=== PATIENT | male | born 1955 | race Caucasian/White ===

== ENCOUNTER 2023-05-30 08:04 | Observation (INO) ==
--- NOTE | 2023-05-15 10:44 | PAT Medication Instructions ---
Medication Instructions Date of Service May 15, 2023 Home Medications Super Beets 1 dose PO atorvastatin 10 mg tablet 10 mg PO HS cholecalciferol (vitamin D3) 25 mcg (1,000 unit) tablet (Vitamin D3) 25 mcg PO QAM collagen,hydrolysate 500 mg-biotin 800 mcg-ascorbic acid 50 mg capsule (Collagen 1500 Plus C) 1 cap PO DAILY turmeric 400 mg capsule 1,000 mg PO DAILY zinc 50 mg tablet 50 mg PO QAM STOP taking 2 weeks before surgery (or as soon as possible if surgery is within 2 weeks) Super Beets 1 dose PO collagen,hydrolysate 500 mg-biotin 800 mcg-ascorbic acid 50 mg capsule (Collagen 1500 Plus C) 1 cap PO DAILY turmeric 400 mg capsule 1,000 mg PO DAILY DO NOT take the morning of surgery cholecalciferol (vitamin D3) 25 mcg (1,000 unit) tablet (Vitamin D3) 25 mcg PO QAM zinc 50 mg tablet 50 mg PO QAM Take evening before surgery atorvastatin 10 mg tablet 10 mg PO HS Other Notes NOTHING TO EAT OR DRINK AFTER MIDNIGHT. If you have any questions please call us at [phone] or [phone] or [phone] or [phone]
--- NOTE | 2023-05-18 10:16 | Anesthesiology Consultation ---
Date of Service May 18, 2023 Assessment & Plan (1) Encounter for pre-operative examination: - Infectious disease screening: Per assessment on 05/18/23: No known infectious disease contacts or current infectious disease symptoms. No noted Covid positive test result in past 90 days. - Outpatient joint assessment: Pt currently scheduled for inpatient pathway. If surgeon requests review for outpatient joint pathway, patient is not recommended candidate for outpatient joint program from anesthesia standpoint. - Cardiology visit (05/04/23): " He reports nonprogressive functional class II s hortness of breath and fatigue. He underwent diagnostic cardiac catheterization which showed normal coronaries.. Continue current meds.. Diet and exercise were discussed with patient.. Low-salt diet.. Check blood pressure on regular basis.. Continue atorvastatin for hyperlipidemia.. Discussed cardiac catheterization results, echocardiogram results and Holter monitor with patient.. No change in medications required." - Cardiology note (05/04/23): "Low to moderate risk" Chart Review Chart Review: Acceptable Risk for Surgery and Patient seen in Pre Admission Testing Teaching & Discussion Pre-Anesthesia Teaching/Discussion Notes: Instructed NPO after midnight before surgery,except medications with 15 cc of water. Medication instructions provided according to the PAT guidelines. History Surgery Operation Date: 05/30/23 09:40 Proposed Procedures p Right Total Knee Arthroplasty - Daniel Fontenot MD Height/Weight Height: 6 ft 1 in Weight: 83.9 kg Allergies Allergy/AdvReac Type Severity Reaction Status Date / Time Penicillins Allergy Unknown Unknown Verified 05/11/23 11:18 Medications Home Medications Medication Instructions Recorded Confirmed Last Taken Super Beets 1 dose PO DIRECTED 05/11/23 05/11/23 Unknown atorvastatin 10 mg tablet 10 mg PO HS 05/11/23 05/11/23 Unknown cholecalciferol (vitamin D3) 25 25 mcg PO QAM 05/11/23 05/11/23 Unknown mcg (1,000 unit) tablet (Vitamin D3) collagen,hydrolysate 500 mg-biotin 1 cap PO DAILY 05/11/23 05/11/23 Unknown 800 mcg-ascorbic acid 50 mg capsule (Collagen 1500 Plus C) turmeric 400 mg capsule 1,000 mg PO DAILY 05/11/23 05/11/23 Unknown zinc 50 mg tablet 50 mg PO QAM 05/11/23 05/11/23 Unknown Past Medical History Medical History Arthritis DDD (degenerative disc disease), lumbar Hiatal hernia History of colitis Remote hx History of COVID-19 09/2022 Hx of deep venous thrombosis RLE DVT, Remote hx (post-op back surgery) Hyperlipidemia IBS (irritable bowel syndrome) Migraine Hx Pre-diabetes RBBB Sleep apnea "No longer has" after weight loss per patient Patient states he was advised doesn't need a device currently based on recent home testing results Spinal stenosis Exercise / Class Metabolic Activity II 4-5 Yardwork/Stairs/Walk up hill Past Surgical History Surgical History History of cardiac cath 04/26/23 (Karishma) > no stents, "mild trivial CAD" History of colonoscopy History of deviated nasal septum repaired History of esophagogastroduodenoscopy (EGD) History of lumbar surgery History of tonsillectomy History of urologic surgery Urolift Hx of inguinal hernia repair Hx of umbilical hernia repair Hx of vasectomy [place] teeth extracted Past Anesthesia History No Hx of Anesthesia Complications and No Family Hx of Anesthesia Complications History of PONV No Hx of PONV and No Hx of Motion Sickness Social History Smoking Status: Former smoker Do You Dip or Chew Tobacco: No Smoking End Date: Very mild use, age 20s Hx Alcohol Use: Yes Alcohol type: beer alcohol intake frequency: a few times a week Hx Substance Use: No substance use type: does not use Review of Systems Chronic sinus drainage. Patient denies chest pain, shortness of breath, dyspnea on exertion, fever, chills, cough, wheezing, palpitations. Physical Exam Vital Signs VITALS BP 134/81 P 61 TEMP 98.2 SP02 98%RA RESP 18 PHYSICAL Mildly decreased cervical extension range of motion. Full TMJ range of motion. TMD 3 finger breaths Mallampati Score 1 Dentition: intact, + caps Lungs: clear throughout to auscultation Cardiac: regular rate and rhythm, no murmurs noted Spine: normal Carotid arteries: negative bruit Extremities: no LE edema Lab Results Anesthesia Preop Results Results Anesthesia Widget: WBC 5.46 K/ul (4.8-10.8) 05/18/23 Hgb 14.0 g/dl (14.0-18.0) 05/18/23 Hct 41.5 % (42.0-52.0) L 05/18/23 Plt 221 K/uL (130-400) 05/18/23 Na 136 mmol/L (136-145) 05/18/23 K 4.5 mmol/L (3.5-5.1) 05/18/23 Cl 102 mmol/L (98-107) 05/18/23 CO2 29 mmol/L (21-32) 05/18/23 BUN 26 mg/dl (6-23) H 05/18/23 Creat 0.89 mg/dl (0.6-1.4) 05/18/23 Glucose Level 112 mg/dl (70-99(Fasting)) H 05/18/23 PT 10.8 Seconds (9.0-12.0) 05/18/23 PTT 26.4 Seconds (21.0-31.0) 05/18/23 INR 1.0 (0.9-1.1) 05/18/23 Urine Color Yellow 05/18/23 Urine Appearance Clear (Clear) 05/18/23 Urine pH 6.0 (4.5-7.5) 05/18/23 Urine Specific [place] 1.013 (1.000-1.030) 05/18/23 Urine Protein Negative (Negative) 05/18/23 Urine Glucose (UA) Negative (Negative) 05/18/23 Urine Ketones Negative (Negative) 05/18/23 Urine Blood Negative (Negative) 05/18/23 Urine Nitrite Negative (Negative) 05/18/23 Urine Bilirubin Negative (Negative) 05/18/23 Urine Urobilinogen Negative (Negative) 05/18/23 Urine Leukocyte Esterase Negative (Negative) 05/18/23 Blood Type O Positive 05/18/23 Antibody Screen NEGATIVE 05/18/23 Testing Electrocardiogram Date: 12/01/22 SB with first degree AVB. Indeterminate axis. RBBB. Possible Septal myocardial infarction, probably old. Chest X-Ray Date: 05/18/23 FINDINGS: PA and lateral chest radiographs are obtained. No prior studies are available for comparison at the time of dictation. The cardiomediastinal silhouette is unremarkable. The lungs and pleural spaces are clear. There is no pneumothorax. The bony thorax appears intact. IMPRESSION: No active disease in the chest. Echocardiogram Date: 03/09/23 EF 55-60%. Mild UT/TI. Normal pulmonary artery pressures. Diastolic function: normal. Stress Test Date: 04/12/23 Based upon EKG ischemia criteria, this test is non-diagnostic. Based upon the nuclear imaging findings there is inferior wall ischemia and apical ischemia. *Subsequent cardiac cath performed 04/26/2023 with mild, trivial CAD* Cardiac Catheterization Date: 04/26/23 Mild trivial CAD. Normal left-sided filling pressure. No aortic stenosis.
--- NOTE | 2023-05-30 06:28 | History & Physical Bridge Note ---
Date of Service May 30, 2023 History & Physical Bridge Note I have examined the patient, reviewed the History & Physical and in the interval since the performance of the History & Physical I have noted the following changes of clinical significance: consent obtained/site verified.no changes noted
[~2023-05-30 08:04] MED LIST: ALLERGY Noted to ORDERED Medication SCH; BUPIVACAINE 0.5 % 5 MG/1 ML PF 10ML VIAL ONE; DEXAMETHASONE SOD INJ 4 MG/ML VIAL ONE; LIDOCAINE 2% 2 ML VIAL/AMP(20MG/ML) INFIL ONE; LR 500ML BOLUS, THEN 15ML/HR IV SCH; LR 60ML/HR IV SCH; MIDAZOLAM HCL 1 MG/ML 2ML VIAL ONE; ONDANSETRON INJ 2 MG/ML 2 ML VIAL ONE; PROPOFOL IV EMULSION 10 MG/ML 20 ML VIAL IV ONE; ROPIVACAINE 0.5% 5 MG/ML 30 ML VIAL ONE; ROPIVACAINE 0.5% HCL/PF 150 MG, BUPIVACAINE 0.75% MPF 20 ML, EPINEPHrine 0.15 MG, Ketor... INFIL SCH; TRANEXAMIC ACID 1,000 MG x 1 **For Topical Use Intraop TOP SCH; ceFAZolin 2000MG 2,000 MG/15 ML SYR IV SCH; fentaNYL citrate PF 100 MCG/2 ML VIAL ONE
[2023-05-30] MEDS ORDERED: fentaNYL citrate PF 100 MCG/2 ML VIAL IV PRN (08:20)
[2023-05-30] MEDS ORDERED: ATROPINE SULFATE 0.1 MG/ML 10ML SYR IV PRN (08:20)
[2023-05-30] MEDS ORDERED: ONDANSETRON INJ 2 MG/ML 2 ML VIAL IV PRN ×2 (08:20→13:00)
[2023-05-30] MEDS ORDERED: ePHEDrine sulfate 50 MG/ML AMP IV PRN (08:20)
[2023-05-30] MEDS ORDERED: ORTHO JOINT ANESTHETIC ONE (09:26)
[2023-05-30] MEDS ORDERED: ePHEDrine sulfate 50 MG/ML AMP ONE (10:51)
--- NOTE | 2023-05-30 11:13 | Post Operative Brief Note ---
Immediate Post Op Note v1 Date of Surgery May 30, 2023 Pre & Post Diagnosis Operation Date: 05/30/23 09:40 Pre-Op Diagnosis: Right Knee Osteoarthritis Post-Op Diagnosis: Right Knee Osteoarthritis I identified the patient and participated in the time-out.: Yes Procedure Operation Date: 05/30/23 09:40 Actual Procedures p Right Total Knee Arthroplasty(Right) - Daniel Fontenot MD Surgeon Daniel Fontenot MD Hay Sorter ROSLYN/Jason Estimated Blood Loss 75 Findings Consistent with Post-Op Diagnosis Tricompartmental osteoarthritis severe medial compartment patellofemoral trochlea and central area of the lateral compartment Fluids See anesthesia report 1200 cc
--- NOTE | 2023-05-30 11:16 | Operative Report ---
Post Operative Report Pre & Post Diagnosis Operation Date: 05/30/23 09:40 Pre-Op Diagnosis: Right Knee Osteoarthritis Post-Op Diagnosis: Right Knee Osteoarthritis I identified the patient and participated in the time-out.: Yes Procedure Operation Date: 05/30/23 09:40 Actual Procedures p Right Total Knee Arthroplasty(Right) - Daniel Fontenot MD Surgeon Daniel Fontenot MD Store Manager ROSLYN/Jason Estimated Blood Loss 75 Findings Consistent with Post-Op Diagnosis Severe osteoarthritis medial compartment central trochlea and central lateral femoral condyle posterior lateral femoral condyle Fluids 1200 cc Specimens Bone pathology Drains None Complications None Indications Severe pain progressive x-ray changes Description of Procedure After the patient was appropriate notified site provide consent provide antibiotics confirmed as being given the right lower extremity was prepped and draped use routine fashion. Tourniquet was inflated to 275 mmHg for exsanguination limb with a rubber Esmarch bandage for total of 51 minutes. Midline exposure utilized parapatellar neurotomy performed synovectomy completed osteophytes resected distal femur entered cruciates resected tibia subluxated menisci resected there was a large mass along the proximal lateral tibial surface that had some gel in it and some of it was solid it was excised and sent for pathology separately. Once all the exposure was obtained distal femur was then resected 12 mm proximal tibia 4 mm the extension and flexion gaps were excellent. Posterior capsule was injected. Box cut was made after the anterior posterior, chamfer cuts made and the in the flexion gap was checked and noted to be excellent. A size 4 fit well. The tibia was then broached and reamed to a size 4 and appropriate spacer placed 10 mm 1 allowed full range of motion with excellent midrange full flexion and full extension stability. The patella tracked well. The patella was resected leaving 15 mm and a 41 button seated well. The Ortho mix was then injected about the knee. The knee was then soaked in TXA for 3 minutes. The knee was then soaked in Betadine for 35 seconds then irrigated and then permanent cemented in position tibia femur and patella in that order a 12 minutes the tourniquet was deflated no major bleeding encountered no major cement removal required at 14 minutes the knee was flexed the trial spacer removed knee irrigated with Betadine Pulsavac and then closed with the permanent spacer seated with #2 Vicryl 2-0 Vicryl and stainless to clips. Appropriate dressing applied patient transferred recovery in satisfactory addition he tolerated the procedure well. Summary of implant size 4 right femur size 4 tray size 41 pa tella size 4x10 posterior cruciate substituting insert. This is posterior cruciate substituting J&J rotating platform knee system 2 bags of [place] G cement DVT prophylaxis be with Eliquis due to his higher risk. He had recently had a ultrasound to confirm that there was no new DVT in his leg it was all chronic change. He understands the risk consequences of this was discussed in detail with him in the office and again this morning with him and family present. I attest to the content of the Intraoperative Record and any orders documented therein. Any exceptions are noted below.
--- NOTE | 2023-05-30 11:17 | Orthopedic Progress Note ---
Date of Service May 30, 2023 Orthopedic Progress Note Patient tolerated right total knee replacement well. There is no major issues block is still in place wound dressing clean dry and intact neurovascular check limited by spinal. X-ray pending. Care plan will be continued hopefully discharge tomorrow if he does well overnight. This is the right knee. High risk for DVT needs to go to bed move and will start his Eliquis tomorrow.
--- NOTE | 2023-05-30 11:19 | Discharge Summary ---
Date of Service May 31, 2023 Admission HPI Per Admitting Provider Knee pain right Principal Diagnosis Osteoarthritis right knee Discharge Data Allergies Allergy/AdvReac Type Severity Reaction Status Date / Time Penicillins Allergy Unknown Unknown- Verified 05/30/23 08:33 as child Vaccinations None Consultations None Procedures Performed Operation Date: 05/30/23 09:40 Actual Procedures p Right Total Knee Arthroplasty(Right) - Daniel Fontenot MD Ordered Studies 05/30/23 09:40 US - OR guided needle placemen Routine Hospital Course (1) Status post right knee replacement: Case management to apply discharge criteria when he meets it tomorrow. Total Time Total Time Spent Total Time Spent (In Minutes): 5 Discharge Plan Discharge Items Reason For Visit: Right Knee Osteoarthritis Discharge Diagnosis: Right knee s/p total knee replacement Condition on Discharge: Good Activity: Per Instructions section Lifting: Wait until after follow-up appointment Bathing: Keep incision dry Sexual Activity: After two weeks Exercise/Sports: Wait until after follow-up appointment Call non-emergency contact if: you have any medication questions, your pain is not controlled, your temperature is above 101.5, your wound has increased redness, your wound has increased drainage and your wound pain has increased Follow-up/Referrals: Annita Stiles DO [Primary Care Provider] - Addtl Attending Provider Instructions: New Medicine: * You will likely be taking one or more of these medications: 1. Percocet - Take, as directed, when you need it, every four to six hours to control your pain. 2. Iron Sulfate - Take1 time each day for the month after surgery to help you replace the blood lost during surgery. 3. Eliquis - Thins your blood to lessen the chance of forming a blood clot. * The most common side effects of pain medicine and iron are nausea and constipation. If nausea or constipation is too much of a problem or if you have any questions about your new medicines or doses, call [facility] at . We will try to help you manage these issues. "VERY IMPORTANT TO READ AND REVIEW" Blood Clots and Blood Thinning Medicine: * You are given Eliquis during the immediate post-operative period to lessen the risk of blood clots forming in your legs and/or lungs. It is usually given for six weeks after surgery. Pain: * The immediate post-operative period after knee replacement surgery is often quite painful. * You are given a prescription for pain medicine. You should take it, as directed, when you need it, especially before physical therapy and before going to bed. Pain that interferes with sleep is very common and can last several months. * You will likely need pain medicine for the first four to six weeks. It will not stop all of the pain. The pain will lessen and as you feel better, you may change to milder pain medicine such as Tylenol. * The most common side effects of pain medicine are nausea and constipation, so don't take more than you need. Physical Therapy: * You will have physical therapy two or three times each week for four to six weeks after your surgery in order to regain your knee range of motion and to retrain your knee to work properly. * It is just as important to make sure you are getting your knee perfectly straight as it is to regain your knee bend. * Taking a pain pill an hour before therapy can help you have a more productive and comfortable therapy session if needed. Home Exercise: * You were shown a series of exercises (heel props, heel slides, etc.) in the hospital. Do these exercises three to four times each day including the exercises you were shown in physical therapy. Walking: * Get up and walk several times each day. For the first four weeks, try not to stand or walk for more than one hour at a time. If you do stand or walk for more than one hour, you will not hurt anything, but your knee and leg will likely swell. * As you feel comfortable, you may change from the walker or crutches to a cane and then to independent walking. SELF CARE INSTRUCTIONS AFTER TOTAL KNEE REPLACEMENT A. You may need to continue a physical therapy program after discharge from the hospital. There are several options available to you. Your doctor will assist you in selecting the best one for you. 1. An out-patient facility 2 to 3 times a week for therapy or home therapy. 2. Continue working on all exercises taught to you in the hospital. Your goals should be to increase bending of your knee to 90 degrees and beyond and to fully straighten your knee. B. You may progress at your own pace from walking with a walker or crutches to a cane; then to no assistive devices. C. Make walking a part of your daily routine. Be up as much as comfortable with rest periods throughout the day. Rest with leg elevation is very important. Use the ice wrap frequently for the first 3-4 weeks. D. There are no restrictions on activities. You may ride in a car, shop, participate in welt butter hand and all social activities. E. Wear the long elastic stockings (JULIETTE hose) 20 hours a day for six weeks after surgery. They can be removed several times a day for laundering and for a shower. F. Do not place a pillow behind your knee when resting. A pillow at your ankle is okay. VERY IMPORTANT TO READ AND REVIEW A. Take Eliquis (blood thinning medication) as directed by your doctor. instructions. B. There are a few signs you need to watch for after you are home. Call [facility] if you notice any of the followin. Increased severe knee pain. Some pain is expected especially when you exercise. 2. Increased swelling in your leg or knee; pain or swelling of the calf muscle in either lower leg. 3. Any fluid drainage from the incision. 4. Shortness of breath or chest pain. C. Please call [facility] at if you have any concerns or questions about your operation or recovery. The doctor or his nurse will return your call promptly. D. You must take antibiotics before dental work, bladder, bowel or other surgery. Call the office to obtain a prescription at least 2 days prior to your appointment. * CALL IF INCREASED PAIN, REDNESS, DRAINAGE OR FEVER GREATER THAT 101. * Sutures should be removed 12-14 days after surgery unless you are on chronic steroids, then it will be 14-18 days after surgery. Call your doctor if: * Temperature above 101 degrees F. * Pain not relieved by pain medicine ordered. * Increased drainage or redness from incision. * Notify your doctor with any questions or concerns. Pending Studies at Discharge: Yes Studies:: Bone and soft tissue pathology Stand-Alone Forms: My [facility] Medications and DC Order Prescriptions: No Action atorvastatin [Lipitor] 10 mg Tablet 10 mg PO HS zinc 50 mg Tablet 50 mg PO QAM cholecalciferol (vitamin D3) [Vitamin D3] 25 mcg (1,000 unit) Tablet 25 mcg PO QAM turmeric 400 mg Capsule 1,000 mg PO DAILY Collagen 1500 Plus C 500 mg-800 mcg- 50 mg Capsule 1 cap PO DAILY Super Beets 1 dose PO DIRECTED Admission Data Admit Date/Time: 05/30/23 11:33 Attending Provider: Daniel Fontenot Admit Provider: Daniel Fontenot Primary Care Provider: Annita Stiles Other Providers: [facility] ; [facility],Referral [place]
--- NOTE | 2023-05-30 11:25 | Operative Report ---
Post Operative Report Pre & Post Diagnosis Operation Date: 05/30/23 09:40 Pre-Op Diagnosis: Right Knee Osteoarthritis Post-Op Diagnosis: Right Knee Osteoarthritis I identified the patient and participated in the time-out.: Yes Procedure Operation Date: 05/30/23 09:40 Actual Procedures p Right Total Knee Arthroplasty(Right) - Daniel Fontenot MD Surgeon Daniel Fontenot MD Prop Drawer ROSLYN/Jason Estimated Blood Loss 75 Findings Consistent with Post-Op Diagnosis Same as postoperative diagnosis. Specimens None Description of Procedure Please see detailed operative note. I attest to the content of the Intraoperative Record and any orders documented therein. Any exceptions are noted below.
--- NOTE | 2023-05-30 11:26 | Operative Report ---
Post Operative Report Pre & Post Diagnosis Operation Date: 05/30/23 09:40 Pre-Op Diagnosis: Right Knee Osteoarthritis Post-Op Diagnosis: Right Knee Osteoarthritis I identified the patient and participated in the time-out.: Yes Procedure Operation Date: 05/30/23 09:40 Actual Procedures p Right Total Knee Arthroplasty(Right) - Daniel Fontenot MD Surgeon CLAUDIA Fontenot MD Air Compressor Mechanic ROSLYN/Jason AYON Estimated Blood Loss 75 Findings Consistent with Post-Op Diagnosis see operative report Specimens see operative report Drains none Complications none Disposition Accompanied Patient To Recovery: Yes Indications This 67 year old male presented to the office with complaints of persisting right knee pain. He had tried conservative care measures without improvement. He elected to proceed with surgical intervention after being educated about potential risks and outcomes. Preoperative imaging was obtained. Description of Procedure The patient was administered a regional block and then taken to the operating room where he was given sedation. He was prepped and draped in the usual sterile fashion. Please see Dr. Fontenot's operative report for specifics of the procedure. I was present for the entire case from initial patient positioning through final wound closure. Assistance was provided in tissue retraction, hemostasis, trial implant placement, final implant placement, and final wound closure. The patient was taken to the recovery room in satisfactory condition. I attest to the content of the Intraoperative Record and any orders documented therein. Any exceptions are noted below.
--- NOTE | 2023-05-30 12:11 | Anesthesiology Progress Note ---
Date of Service May 30, 2023 Anesthesia Post Procedure Vital Signs Vital Signs: Temp Pulse Pulse Resp BP BP Pulse Ox 05/30/23 12:00 67 14 120/73 98 05/30/23 11:50 62 17 114/64 98 05/30/23 11:40 61 21 114/72 97 05/30/23 11:30 64 15 115/68 97 05/30/23 11:24 96.8 F L 65 18 129/69 97 05/30/23 09:00 97.7 F 62 20 141/88 H 99 O2 Del Method 05/30/23 12:00 Room Air 05/30/23 11:50 Room Air 05/30/23 11:40 Room Air 05/30/23 11:30 Room Air 05/30/23 11:24 Room Air 05/30/23 09:00 Room Air Transfer of Care Handoff Completed per policy Notes Mental Status: alert / awake / arousable and participated in evaluation Patient Amnestic to Procedure: Yes Nausea / Vomiting: adequately controlled Pain: adequately controlled Airway Patency, RR, SpO2: stable & adequate BP & HR: stable & adequate Hydration State: stable & adequate Neuraxial Anesthesia: was administered and sensory block is resolving Anesthetic Complications: no major complications apparent and Pt Satisfied with anesthetic care
--- NOTE | 2023-05-30 12:27 | XRay Report ---
XR knee RT 1 or 2V routine CLINICAL HISTORY: S/P R TKA TECHNIQUE: 2 views of the right knee were obtained. Comparison: Comparison is made to knee radiograph 12/18/2022 FINDINGS: Patient is status post total knee arthroplasty with expected postsurgical changes including soft tiss ue swelling and subcutaneous emphysema. No periarticular lucency or hardware fracture is seen. IMPRESSION: Expected postoperative appearance status post placement of total knee arthroplasty. ACT 112: Negative or not required by law. Electronically signed by: Braeden Jensen M.D. 05/30/2023 12:26 PM
[2023-05-30] MEDS ORDERED: HYDROmorphone INJ 0.5 MG/0.5 ML SYR IV PRN (13:00)
[2023-05-30] MEDS ORDERED: oxyCODONE HCL IR 5 MG TAB (IMMEDIATE RELEASE) PO PRN (13:00)
[2023-05-30] MEDS ORDERED: TAMSULOSIN HCL 0.4 MG CAP PO PRN (13:00)
[2023-05-30] MEDS ORDERED: NALOXONE HCL 0.4 MG/1 ML VIAL/CARP IV PRN (13:00)
[2023-05-30] MEDS ORDERED: METOCLOPRAMIDE HCL INJ 5 MG/ML 2 ML VIAL IV PRN (13:00)
[2023-05-30] MEDS ORDERED: SODIUM CHLORIDE 0.9% 1,000 ML IV SCH (13:00)
[2023-05-30] MEDS ORDERED: diphenhydrAMINE 50 MG/ML VIAL IV PRN (13:00)
[2023-05-30] MEDS ORDERED: KETOROLAC TROMETHAMINE 15 MG/ML VIAL IV SCH (13:00)
[2023-05-30] MEDS ORDERED: bisacodyL 10 MG SUPP PR PRN (13:00)
[2023-05-30] MEDS ORDERED: MAGNESIUM HYDROXIDE SUSP 30 ML UDC PO PRN (13:00)
[2023-05-30] MEDS ORDERED: ALUMINUM/MAGNESIUM SUSP 30 ML UDC PO PRN (13:00)
--- NOTE | 2023-05-30 14:45 | Orthopedic Progress Note ---
Date of Service May 30, 2023 Assessment & Plan (1) Status post right knee replacement: Plan: Case management to apply discharge criteria when he meets it tomorrow. Admission and Anticipated Discharge Date Admission Date: May 30, 2023 Orthopedic Progress Note Seen this afternoon. He is resting comfortably in bed in bed. He is eating and drinking well. He denies any chest pain shortness of breath fever chills nausea vomiting or headache. Neurovascular check from the block is starting to wear off as active toe extension and ankle extension but it is weak. The sensation starting to return. Still cannot do straight leg raise yet. X-rays postop look excellent. Assessment overall doing well continue care pathway ambulate GURDEEP based on his previous risk of DVT PE. We will start Eliquis tomorrow. Patient tolerated right total knee replacement well. There is no major issues block is still in place wound dressing clean dry and intact neurovascular check limited by spinal. X-ray pending. Care plan will be continued hopefully discharge tomorrow if he does well overnight. This is the right knee. High risk for DVT needs to go to bed move and will start his Eliquis tomorrow.
[2023-05-30] MEDS: ACETAMINOPHEN 500 MG TAB PO SCH ×2 (14:59→22:55)
[2023-05-30] MEDS: ASCORBIC ACID 500 MG TAB PO SCH (16:06)
[2023-05-30] MEDS: FERROUS GLUCONATE 324 MG TAB PO SCH (16:06)
[2023-05-30] MEDS ORDERED: Nursing to Pharmacy Communication SCH (17:15)
[2023-05-30] MEDS: ceFAZolin 2000MG 2,000 MG/15 ML SYR IV SCH (18:32)
[2023-05-30] MEDS: DOCUSATE SODIUM 100 MG CAP PO SCH (19:38)
[2023-05-30] MEDS ORDERED: SENNA 8.6 MG TAB PO SCH (21:00)
[2023-05-30] MEDS ORDERED: ATORVASTATIN 10 MG TAB PO SCH (21:00)
[2023-05-30] MEDS: KETOROLAC TROMETHAMINE 15 MG/ML VIAL IV SCH (22:55)
[2023-05-31] MEDS: ceFAZolin 2000MG 2,000 MG/15 ML SYR IV SCH (02:08)
[2023-05-31] MEDS: ACETAMINOPHEN 500 MG TAB PO SCH (05:45)
[2023-05-31] MEDS: KETOROLAC TROMETHAMINE 15 MG/ML VIAL IV SCH ×2 (05:46→10:58)
--- NOTE | 2023-05-31 06:35 | Orthopedic Progress Note ---
Date of Service May 31, 2023 Assessment & Plan Admission and Anticipated Discharge Date Admission Date: May 30, 2023 Orthopedic Progress Note Postop day #1 status post right total knee replacement. He is sitting up in bed he is comfortable. He states he is already done some exercises. He denies any chest pain shortness of breath fever chills nausea vomiting or headache. Vital signs are stable he is afebrile. Neurovascular check femoral sciatic nerve is normal. Wound dressing clean dry and intact. Calves nontender. Assessment doing well status post right total knee replacement. X-rays look excellent. He is mobile. He is starting his Eliquis today. We will continue with appropriate rehab discharge today after dressing change.
[2023-05-31 06:40] LABS: Hematocrit (blood only) 36.6 % (42.0-52.0); Hemoglobin 13.1 g/dl (14.0-18.0); Mean Corpuscular Hemoglobin 33.3 pg (25.0-34.0); Mean Corpuscular Hgb Conc 35.8 g/dL (32.0-36.0); Mean Corpuscular Volume 93.1 fL (80.0-100.0); Mean Platelet Volume 9.7 fL (9.4-12.4); Platelet Count 185 K/uL (130-400); RDW Coefficient of Variation 12.4 % (11.5-14.5); RDW Standard Deviation 43.1 fL (36.4-46.3); Red Blood Count 3.93 M/uL (4.70-6.10); White Blood Count 11.34 K/ul (4.8-10.8)
[2023-05-31 07:08] LABS: BUN Creatinine Ratio 23.5 (10-20); Creatinine Clr Calc Pharmacy 96.6 ml/min; Est GFR (African American) 105.2 ml/min; Est GFR (Non-African American) 90.8 ml/min; Potassium 4.3 mmol/L (3.5-5.1)
[2023-05-31] MEDS: ASCORBIC ACID 500 MG TAB PO SCH (07:50)
[2023-05-31] MEDS: FERROUS GLUCONATE 324 MG TAB PO SCH (07:50)
[2023-05-31] MEDS ORDERED: dexAMETHasone 10 MG in SYRINGE 0 ML IV SCH (08:00)
--- NOTE | 2023-05-31 08:32 | Orthopedic Progress Note ---
Date of Service May 31, 2023 Assessment & Plan (1) Status post right knee replacement: Plan: The patient's postsurgical dressing was changed today by me. New JULIETTE hose were was applied as well. He may leave the dressing in place as long as it is not soiled. It can be changed on Sunday by home health nursing if needed for soiling. Anticipate discharge to home with home health services today after PT/OT. Eliquis 2.5 mg was started this morning. Continue twice daily for the next 6 weeks. Prescriptions for Percocet and Eliquis were sent to his pharmacy. Continue using the knee immobilizer today and tomorrow when out of bed. It may be discontinued entirely on Sunday morning. Written discharge instructions were provided. Follow-up in the office in 2 weeks as scheduled for staple removal. Admission and Anticipated Discharge Date Admission Date: May 30, 2023 Subjective This 67-year-old male is seen today in his room. He is 1 day status post right total knee arthroplasty. He states he did well overnight. He did not sleep much, but did not have much in the way of pain. He has been out of bed already. He has been doing his straight leg raises and heel slides. He denies any chest pain, shortness of breath, nausea, vomiting, or abdominal pain. No other complaints at this point. He feels ready for discharge. Review of Systems Review of Systems: Unchanged from yesterday. Physical Exam Physical Exam: General: Well-developed, well-nourished, middle-aged male, in no acute distress. Laying in bed. Eating his breakfast. Alert and oriented. Conversive. Skin: Warm and dry with good turgor. No rashes. Postsurgical dressing is in place on the right knee. Upon removal, there is essentially no drainage on the inner dressings. Susan are intact. Wound edges are well approximated. No erythema or warmth. He has no edema. Mild ecchymosis is present over the anterior aspect of the knee. Musculoskeletal: The patient has intact motor function of his right leg. He is able to set his quad and perform a straight leg raise. He has full terminal extension. Flexion to greater than 50 degrees. Intact motor function to the ankle and toes. Neurologic: Gross sensation is intact across the right leg by soft touch. Peripheral pulses are 2+. Results & Data Vital Signs (Past 12 Hours) Vital Signs Temp Pulse Pulse Resp BP Pulse Ox O2 Del Method 05/31/23 07:55 36.8 C 60 18 108/67 96 Room Air 05/31/23 03:01 36.5 C 55 L 16 120/66 95 Room Air 05/30/23 23:19 36.5 C 62 16 123/78 93 Room Air Laboratory Results CBC obtained today shows a white count of 11.3. Hemoglobin 13.1. Hematocrit 36.6. Platelets 185,000. Potassium 4.3, chloride 104, CO2 28, anion gap 4. Glucose 112.
[2023-05-31] MEDS: DOCUSATE SODIUM 100 MG CAP PO SCH (08:57)
[2023-05-31] MEDS ORDERED: MULTIVITAMIN TAB PO SCH (09:00)
[2023-05-31] MEDS ORDERED: APIXABAN 2.5 MG TAB PO SCH (09:00)
== END 2023-05-31 11:40 | disposition home health service (06) ==
LOC: 3E 08:04 → ASU 08:04